=== PATIENT | male | born 1940 | race Caucasian/White ===

== ENCOUNTER → 2019-09-15 | Outpatient (CLI) | payer OTHER ==
[~2019-09-15] MED LIST: DULCOLAX5 MG; KETOROLAC TROME10 MG; SIMVASTATIN5 MG
== END | disposition home or self-care (01) ==
LOC: NUCLEAR 08:26
DX: I87.2 Venous insufficiency (chronic) (peripheral) (principal)

== ENCOUNTER 2023-09-05 08:20 | Outpatient (CLI) | payer OTHER | END 2023-09-05 08:36 | disposition home or self-care (01) | LOC: TOM 08:20 | PROVIDERS: ATTEND Internal Medicine Cardiovascular Disease | DX: R41.2 Retrograde amnesia (principal) ==